=== PATIENT | female | born 2005 | race Two or more races ===

== ENCOUNTER 2025-07-07 10:34 | Emergency (ER) | payer SELFPAY ==
[~2025-07-07] VITALS: Ht 154.9 cm; Wt 42.6 kg
[2025-07-07] MEDS: IBUPROFEN 600 MG TAB PO ONE (11:18)
[2025-07-07 11:27] LABS: Rapid Strep A Screen-Throat Negative
--- NOTE | 2025-07-07 11:42 | ED.PDOC ---
History of Present Illness HPI Comments 20 Y/O F presents with c/c sore throat and mouth sores and headache. Patient endorses on 3x day history of symptoms, that began, initially, with sore throat, with onset of mouth sores on the inside of her jaw cheeks the next day and headache, today. No endorsed pertinent medical history or sick contact. Denies any nausea, vomiting, fever, chills, or further associated symptoms. Denies any cough. Vital signs were stable on arrival. Chief Complaint: Sore Throat Time Seen by MD: 10:30 Reviewed Notes: Nurses Notes, Medications, Allergies Allergies: Coded Allergies: NO KNOWN ALLERGIES (Unverified , 07/07/25) Information Source: Patient Mode of Arrival: Ambulatory Severity: Moderate Timing: Hours Duration: Since onset Prehospital treatment: None Past Medical History PAST MEDICAL HISTORY: Denies Surgical History: Denies all surgeries [employer] History: No Pertinent [employer] History Family History Family History: Unknown Social History Smoker: Non-Smoker Alcohol: Denies ETOH Use Drugs: Denies Drug Use Lives In: Home Constitutional: denies: chills, diaphoresis, fatigue, fever, malaise, sweats, weakness, others EENTM: reports: throat pain, throat swelling, others (Oral sores); denies: blurred vision, double vision, ear bleeding, ear discharge, ear drainage, ear pain, ear ringing, eye pain, eye redness, hearing loss, mouth pain, mouth swelling, nasal discharge, nose bleeding, nose congestion, nose pain, photophobia, tearing, voice changes Respiratory: denies: cough, hemoptysis, orthopnea, SOB at rest, shortness of breath, SOB with excertion, stridor, wheezing, others Cardiovascular: denies: chest pain, dizzy spells, diaphoresis, Dyspnea on exertion, edema, irregular heart beat, left arm pain, lightheadedness, palpitations, PND, syncope, others Gastrointestinal: denies: abdomen distended, abdominal pain, blood streaked bowels, constipated, diarrhea, dysphagia, difficulty swallowing, hematemesis, melena, nausea, poor appetite, poor fluid intake, rectal bleeding, rectal pain, vomiting, others Genitourinary: denies: abnormal vagina bleeding, burning, dyspareunia, dysuria, flank pain, frequency, hematuria, incontinence, pain, , vagina discharge, urgency, others Neurological: denies: dizziness, fainting, headache, left sided numbness, left sided weakness, numbness, paresthesia, pre-existing deficit, right sided numbne ss, right sided weakness, seizure, speech problems, tingling, tremors, weakness, others Musculoskeletal: denies: back pain, gout, joint pain, joint swelling, muscle pain, muscle stiffness, neck pain, others Integumetry: denies: bruises, change in color, change in hair/nails, dryness, laceration, lesions, lumps, rash, wounds, others Allergic/Immunocompromised: denies: Difficulty Healing, Frequent Infections, Hives, Itching, others Hematologic/Lymphatic: denies: anemia, blood clots, easy bleeding, easy bruising, swollen glands, others Endocrine: denies: excessive hunger, excessive sweating, excessive thirst, excessive urination, flushing, intolerance to cold, intolerance to heat, unexplained weight gain, unexplained weight loss, others Psychiatric: denies: anxiety, bipolar disorder, depression, hopeless, panic disorder, schizophrenia, sleepless, suicidal, others All Other Systems: Reviewed and Negative (as per HPI) Physical Exam General Appearance: Moderate Distress ([id number] distress due to oral sores and throat pain), Normal HEENT: Pharyngeal Erythema ([id number] beefy oropharynx without definitive exudate. Mild bilateral tonsillar pillar involvement. Airway is patent. Additional findings of multiple aphthous ulcers were appreciated at the right buccal mucosa and left-sided front buccal mucosa.) Neck: Full Range of Motion, Non-Tender, Normal, Normal Inspection Respiratory: Chest Non-Tender, Lungs Clear, No Accessory Muscle Use, No Respiratory Distress, Normal Breath Sounds Cardiovascular: No Edema, No JVD, No Murmur, No Gallop, Normal Peripheral Pulses, Regular Rate/Rhythm Breast Exam: Deferred Gastrointestinal: No Organomegaly, Non Tender, No Pulsatile Mass, Normal Bowel Sounds, Soft Genitalia: Deferred Pelvic: Deferred Rectal: Deferred Extremities: No calf tenderness, Normal capillary refill, Normal inspection, Normal range of motion, Non-tender, No pedal edema Neurologic: Alert, No Motor Deficits, Normal Affect, Normal Mood, No Sensory Deficits Cerebellar Function: Normal Reflexes: Normal Skin: Dry, Normal Color, Warm Lymphatic: No Adenopathy Was a procedure done? Was a procedure done?: No Differential Dx Considerations may include: pharyngitis, strep throat, viral syndrome, among others X-Ray, Labs, Meds, VS Vital Signs Date Time Temp Pulse Resp B/P (MAP) Pulse Ox O2 Delivery O2 Flow Rate FiO2 07/07/25 10:35 98.1 77 16 93/56 99 98.1 Lab Test 07/07/25 10:50 Range/Units Group A Streptococcus Rapid Negative Current Medications Medications (Trade) Dose Ordered Sig/Tere Route Start Time Stop Time Status Last Admin Ibuprofen (Motrin Tablet) 600 mg ONCE ONCE PO 07/07/25 11:00 07/07/25 11:01 DC 07/07/25 11:18 X-Ray, Labs, Meds, VS Comment All studies in the ED were evaluated by me personally. Swabs studies were unremarkable for any streptococcal pharyngitis. Patient appears to be suffering from a viral pharyngitis with aphthous ulcers included. Patient will be sent home with supportive medications and advised to practice good hydration and healthy nutrition. Time of 1ST Reevaluation: 11:53 Reevaluation 1ST: Improved Consultation: PCP Patient Education/Counseling: Diagnosis, Treatment, Need For Follow Up Family Education/Counseling: Diagnosis, Treatment, No Family Present SEPSIS Sepsis Screen Date sepsis recognized/suspect: Jul 07, 2025 Time Sepsis recognized/suspect: 1037 Recent Procedure: No On Antibiotic Therapy: No Respiratory Rate >20: No Heart Rate >90: No Temp<36 C (96.8 F) or >38.3 C: No SBP <90 or MAP <65 mmHG: No New Acute Mental Status Change: No Is the patient on CPAP, BIPAP,: No Vital Signs Date Time Temp Pulse Resp B/P (MAP) Pulse Ox O2 Delivery O2 Flow Rate FiO2 07/07/25 10:35 98.1 77 16 93/56 99 98.1 Medications Medications Dose Ordered Sig/Tere Route Start Time Stop Time Status Last Admin Dose Admin Ibuprofen 600 mg ONCE ONCE PO 07/07/25 11:00 07/07/25 11:01 DC 07/07/25 11:18 Departure 1 Departure Time of Disposition: 11:53 Impression: Primary Impression: Viral pharyngitis Additional Impression: Aphthous ulcer of mouth Disposition: 01 HOME / SELF CARE / HOMELESS Condition: Stable Additional Instructions: Advise utilizing medication as directed as well as medication as needed. Patient should practice good hydration and healthy nutrition throughout. e-Prescriptions Ibuprofen (Ibuprofen) 600 Mg Tab 1 TAB PO Q6HP PRN, #30 TAB Prov: LA NENA COLEMAN PAC 07/07/25 Lidocaine HCl (Mouth-Throat) (Lidocaine HCl Viscous) 2 % Oanh 2 % MT Q4HP PRN, #50 ML Use every 3 hours as needed. Swish around the mouth and then spit out. Maximum six doses a day. Prov: LA NENA COLEMAN PAC 07/07/25 Chlorhexidine Gluconate (Mouth (CHLORHEXIDINE ORAL RINSE) 473 Ml So 15 ML MT Q12HR, #300 ML Prov: LA NENA COLEMAN 07/07/25 Discharged With: Self, Friend Critical Care Note Critical Care Time?: No Stability Stability form required: No Heart Score Heart Score: Heart Score Response (Comments) Value History N/A 0 EKG N/A 0 Age N/A 0 Risk Factors N/A 0 Troponin N/A 0 Total 0 I personally scribed for LA NENA COLEMAN PAC ([email or web address]) on 07/07/25 at 11:42. Electronically submitted by Pastor Sharpe ([email or web address]). LA NENA COLEMAN PAC Jul 07, 2025 11:42
[2025-07-07] MEDS ORDERED: IBUP-1454 PO (11:59)
[2025-07-07] MEDS ORDERED: LIDO2SOL26 MT (11:59)
[2025-07-07] MEDS ORDERED: CHL12OR MT (11:59)
[2025-07-07 12:16] VITALS: BP 94/65; PULSE 82; RESP 16; TEMP 98.1; O2SAT 97
== END 2025-07-07 12:18 | disposition home or self-care (01) ==
LOC: ER 10:34
DX: J02.8 Acute pharyngitis due to other specified organisms (principal); K12.0 Recurrent oral aphthae; B97.89 Other viral agents as the cause of diseases classified elsewhere
CPT/HCPCS: 87070; 87880